=== PATIENT | female | born 1995 | race Caucasian/White ===

== ENCOUNTER 2023-08-26 19:48 | Emergency (ER) | payer BC, SELFPAY ==
--- NOTE | 2023-08-26 20:02 | XRR_ITS ---
PROCEDURE INFORMATION: Exam: XR Left Ankle Exam date and time: 08/26/2023 8:27 PM Age: 28 years old Clinical indication: Pain; Ankle; Bilateral TECHNIQUE: Imaging protocol: Radiologic exam of the left ankle. Views: 3 or more views. COMPARISON: No relevant prior studies available. FINDINGS: Bones/joints: No fracture Soft tissues: Mild soft tissue swelling. XR/XR ankle LT min 3V* [id number] IMPRESSION: 1. Mild soft tissue swelling, which can be seen in a sprain. 2. No acute fracture.
--- NOTE | 2023-08-26 20:02 | XRR_ITS ---
PROCEDURE INFORMATION: Exam: XR Right Ankle Exam date and time: 08/26/2023 8:26 PM Age: 28 years old Clinical indication: Pain; Ankle; Bilateral TECHNIQUE: Imaging protocol: Radiologic exam of the right ankle. Views: 3 or more views. COMPARISON: No relevant prior studies available. FINDINGS: Bones/joints: No acute fracture or subluxation. Soft tissues: Mild soft tissue swelling along the malleolus which can be seen with sprain. XR/XR ankle RT min 3V* [id number] IMPRESSION: No acute fracture, mild soft tissue swelling which can be seen with a sprain.
[2023-08-26 20:14] VITALS: BP 116/83; PULSE 78; RESP 14; TEMP 36.8; O2SAT 100; BMI 41.8
[2023-08-26] MEDS: ketorolac 60 mg/2 mL INJ IM (21:30)
--- NOTE | 2023-08-26 21:39 | W.ED.EXTPRO ---
HPI - Extremity Problem General: Chief complaint: Extremity Injury, Lower Stated complaint: Injury Both Ankles Time Seen by Provider: 08/26/23 20:02 Source: patient Mode of arrival: ambulatory Limitations: no limitations History of Present Illness: Patient is a 28-year-old female presenting to the emergency department complaining of bilateral ankle injury today. Patient states she was walking on stairs and had an inversion injury of both ankles while taking the last step. She states that ambulating has been painful. There is swelling reported to the lateral aspect of both, where she also reports pain. No prior injuries or surgeries to either ankle. No other concerning symptoms or historical factors to report at this time. She has been taking ibuprofen but states this has not been helping. MD Complaint: joint pain Onset (ago): hour(s) Pain Consistency: constant Location: left and right Radiation: none Relieving factors: nothing Exacerbating factors: range of motion and weight bearing Associated symptoms: Deny chest pain, fever(s) or rash Review of Systems General: Reports: 10 or more systems reviewed and unremarkable except in HPI and below Const: Denies: fever(s) or chills Card: Denies: chest pain Resp: Denies: dyspnea or productive cough GI: Denies: abdominal pain, nausea, vomiting or diarrhea : Denies: flank pain Musc: Reports: joint pain and joint swelling; Denies: neck pain, back pain, extremity pain, extremity swelling, joint redness, joint warmth, limited range of motion or muscle weakness Skin/Breast: Denies: rash Neuro: Denies: headache(s), numbness in extremities or weakness in extremities [facility] Female Reproductive History: Date of last menstrual period: 08/17/23 Physical Exam Const: COMMON NORMALS: no acute distress, patient oriented x3, no limitations, healthy appearing, alert and well nourished NUTRITIONAL APPEARANCE: obese morbidly obese HENMT: COMMON NORMALS: normocephalic and atraumatic HEAD & SCALP: normocephalic and atraumatic Neck/C-Spine: COMMON NORMALS: full ROM, supple and no meningeal signs Resp: COMMON NORMALS: normal respiratory effort, No use of accessory muscles and clear to auscultation bilaterally AUSCULTATION: clear to auscultation bilaterally Cardio: COMMON NORMALS: regular rate and regular rhythm RATE: regular rate RHYTHM: regular rhythm Extremity: NARRATIVE EXTREMITY EXAM: Swelling noted to the lateral aspect of both the right and left ankle. Tenderness to palpation of the lateral malleolus of both ankles. Patient is not compliant with range of motion examination and refuses to move extremities. Distal neurovascular exam intact and there are no focal sensory deficits. Good pulses. Neuro: COMMON NORMALS: patient oriented x3, moves all extremities, no focal motor deficits and no sensory deficits noted SENSORIUM/ORIENTATION: Yes alert MENINGEAL SIGNS: Yes no meningeal signs Skin: COMMON NORMALS: no rashes or lesions noted GENERAL SKIN EXAM: no rashes or lesions noted Course Vital Signs: Vital signs: Vital Signs Temperature 98.3 F 08/26/23 20:14 Pulse Rate 78 08/26/23 20:14 Respiratory Rate 14 08/26/23 20:14 Blood Pressure 116/83 08/26/23 20:14 Pulse Oximetry 100 08/26/23 20:14 Oxygen Delivery Me thod Room Air 08/26/23 20:14 MDM - Extremity (Nontraumatic) Medical Decision Making Patient presents with bilateral ankle injury. She is morbidly obese on examination and no obvious deformity noted. X-ray demonstrated soft tissue swelling however no fractures or dislocations. Will treat with RICE therapy for sprain, likely of the ATFL of both ankles. Instructed use Tylenol and ibuprofen and a work note is provided. Lab Data Radiology Impressions Ankle X-Ray 08/26/23 20:02 IMPRESSION: 1. Mild soft tissue swelling, which can be seen in a sprain. 2. No acute fracture. All radiology interpretation(s) finalized by discharge Discharge Plan Discharge Patient Disposition: Home Clinical Impression: Right ankle sprain Qualifiers: Encounter type: initial encounter Involved ligament of ankle: anterior talofibular ligament Qualified Code(s): S93.491A - Sprain of other ligament of right ankle, initial encounter Left ankle sprain Qualifiers: Encounter type: initial encounter Involved ligament of ankle: anterior talofibular ligament Qualified Code(s): S93.492A - Sprain of other ligament of left ankle, initial encounter Condition: Stable Discharge Orders: Discharge ED (Routine); Ordered 08/26/23 Ordered By: Richardson Trejo Discharge Diet: Usual diet Discharge Activity: Increase activity as tolerated Patient Instructions: Ankle Sprain (ED), Pain Management Activity Restrictions/Additional Instructions: Rest, ice, compression, and elevation. Tylenol and ibuprofen for pain relief. Gently increase your range of motion and weightbearing. Please establish with and follow-up with primary care as instructed. 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
== END 2023-08-26 21:46 | disposition home or self-care (01) ==
PROVIDERS: Emergency Provider Physician Assistant
DX: S93.491A Sprain of other ligament of right ankle, initial encounter (principal); S93.492A Sprain of other ligament of left ankle, initial encounter; X50.1XXA Overexertion from prolonged static or awkward postures, initial encounter
CPT/HCPCS: 73610; 96372; 99284; J1885